=== PATIENT | male | born 1995 | race Caucasian/White ===

== ENCOUNTER → 2016-06-06 | Day surgery (SDC) | payer OTHER ==
[2016-06-06] VITALS (7 sets, daily range): BP systolic 115–128; BP diastolic 61–78
[~2016-06-06] VITALS: Ht 182.9 cm; Wt 96.6 kg
[~2016-06-06] MED LIST: LR 1000ml 1,000 ML IVLG SCH; LR 1000ml ONE; NKM; Propofol 10mg/ml 20ml IV ONE
--- NOTE | 2016-06-06 08:44 | Short Stay Surgery H&P ---
History of Present Illness History of Present Illness Chief Complaint GI bleeding, Abdominal pains and history of colon polyp. BEV Zambrano is a 21 year old male who was admitted on for Gerds, Ibs, colon polyps/GI bleed. Review of Systems Cardiovascular: Reports: no symptoms Respiratory: Reports: no symptoms Skeletal: Reports: no symptoms Gastrointestinal: Reports: gastro esophageal reflux disease Neurologic: Reports: no symptoms Endocrine: Reports: no symptoms Hematologic: Reports: no symptoms Physical Exam Skin: normal HENT: normal Heart: normal Lungs: normal Abdomen: abnormal Extremities: normal Genitourinary: normal Plan Plan of Care Upper and lower Gi endoscopy. Preop Interventions None. Summary of Findings See the reports Final Diagnosis: Attestation Are the patient's medical conditions optimized for surgery? Attestation Response: yes DIONNA KING Jun 06, 2016 08:44
--- NOTE | 2016-06-06 08:46 | Pre-Procedure Note/Attestation ---
Pre-Procedure Note/Attestation Complete Prior to Procedure Planned Procedure: left Procedure Narrative: The endoscopic exam of the upper and the lower GI tract. Indications for Procedure Pre-Operative Diagnosis: R/O Peptic Ulcer/ gastritis colon polyps/colitis Attestation I attest that I discussed the nature of the procedure; its benefits; risks and complications; and alternatives (and the risks and benefits of such alternatives ), prior to the procedure, with the patient (or the patient's legal account development representative). I attest that, if there was a reasonable possibility of needing a blood transfusion, the patient (or the patient's legal account development representative) was given the [place] [employer] [facility] [employer] [facility] standardized written summary, pursuant to the [place] Blood Safety Act ([place] Health and Safety Code # 1645, as amended). I attest that I re-evaluated the patient just prior to the surgery and that there has been no change in the patient's H&P, except as documented below: DIONNA KING Jun 06, 2016 08:46
--- NOTE | 2016-06-06 09:20 | Anethesia Preoperative Eval ---
Anesthesia Pre-op PMH/ROS General Date of Evaluation: Jun 06, 2016 Time of Evaluation: 09:07 Anesthesiologist: gris ASA Score: ASA 2 Mallampati Score Class I : Soft palate, uvula, fauces, pillars visible Class II: Soft palate, uvula, fauces visible Class III: Soft palate, base of uvula visible Class IV: Only hard plate visible Mallampati Classification: Class II Surgeon: sylvia Diagnosis: GERD, IBS Surgical Procedure: egd/colonoscopy Anesthesia History: none Allergies: Coded Allergies: No Known Allergies (Unverified , 06/06/16) Past Medical History Gastrointestinal/Genitourinary: Reports: GERD Anesthesia Pre-op Phys. Exam Physician Exam Last Vital Signs Date Time Temp Pulse Resp B/P Pulse Ox O2 Delivery O2 Flow Rate FiO2 06/06/16 08:48 97.7 80 18 128/78 100 Room Air Airway Exam Mallampati Score: Class II Teeth: intact Anesthesia Pre-op A/P Risk Assessment & Plan Plan: propofol Status Change Before Surgery: Denton Knutson MD Jun 06, 2016 09:20
--- NOTE | 2016-06-06 09:21 | Immediate Post-Op Evaluation ---
Immediate Post-Op Evalulation Immediate Post-Op Evalulation Date of Evaluation: Jun 06, 2016 Time of Evaluation: 09:45 IV Fluids: 500 Blood Pressure Systolic: 115 Blood Pressure Diastolic: 67 Pulse Rate: 78 Respiratory Rate: 17 O2 Sat by Pulse Oximetry: 100 Temperature (Fahrenheit): 98.5 Pain Score (1-10): 0 Nausea: No Vomiting: No Complications none Patient Status: awake, patent, none Hydration Status: adequate Denton Heart MD Jun 06, 2016 09:21
--- NOTE | 2016-06-06 09:22 | 48 Hour Post Anesthesia Eval ---
Post Anesthesia Evaluation Date of Evaluation: Jun 06, 2016 Time of Evaluation: 10:10 Blood Pressure Systolic: 120 0: 62 Pulse Rate: 65 Respiratory Rate: 21 Temperature (Fahrenheit): 98 O2 Sat by Pulse Oximetry: 100 Airway: patent Nausea: No Vomiting: No Pain Intensity: 0 Hydration Status: adequate Cardiopulmonary Status: stable Mental Status/LOC: patient returned to baseline Follow-up Care/Observations: n/a Post-Anesthesia Complications: toleratd well Follow-up care needed: ready to discharge Denton Heart MD Jun 06, 2016 09:22
--- NOTE | 2016-06-06 09:31 | Endoscopy Procedure Note ---
Endoscopy Procedure Note Procedures Performed: EGD - Completely normal upper GI endoscopy, biopsy done per random from gastric body, colonoscopy - Poor colon prep with high redundancy of the left colon. Small 2mm hyperplastc polyp found in rectum removed by cold biopsy forceps. Specimen: yes Pt Tolerated Procedure Well: Yes Estimated Blood Loss: none Anesthesiologist: Dr. Heart Anesthesia: moderate sedation Medication Given: see anesthesia record Implant(s) used?: No 50 yrs or older w/o bx or poly: No 10yrs. F/U not recommended: Yes If not recommended, why?: 10 yrs. F/U needed: Yes <3yrs. since last colonoscopy: No Med reason:<3 yrs.: System Reason:<3 yrs.: DIONNA KING Jun 06, 2016 09:31
--- NOTE | 2016-06-06 09:32 | Discharge Instructions ---
Discharge Instructions Discharge Instructions Follow up with: See the the doctor after 2 weeks in office. For Congestive Heart Failure Reminder Report to your physician any weight gain of 5 pounds or more in one week. DIONNA KING Jun 06, 2016 09:32
--- NOTE | 2016-06-06 11:08 | Operative Note - Dictated ---
DATE OF OPERATION: 06/06/2016 PREOPERATIVE DIAGNOSES: 1. History of gastroesophageal reflux. 2. Abdominal pain. 3. History of gastrointestinal bleeding. POSTOPERATIVE DIAGNOSIS: Completely normal upper gastrointestinal endoscopy. Biopsy was taken per random from gastric body. PROCEDURE PERFORMED: Esophagogastroduodenoscopy with biopsy. SURGEON: Caro Petty M.D. ANESTHESIOLOGIST: Dr. Heart. MEDICATIONS USED: Per Dr. Heart, anesthesiologist. INSTRUMENT: GIF Olympus upper GI video endoscope. DESCRIPTION OF PROCEDURE: The patient after arriving at endoscopy unit, was told about risks and benefits of the procedure, which he accepted and signed the informed consent. At this time, he was put in the left lateral decubitus position. After adequate IV sedation, the scope was gently passed through the cricopharyngeal area, was lodged into the upper esophagus and gradually advanced towards gastroesophageal junction. The entire length of the esophagus was normal so was the gastroesophageal junction. No Lal's or hiatal hernia. The scope was then guided into the stomach. Gastric cavity was distended with insufflation of air and gradually the areas of the fundus, the body, and the antrum were examined which revealed no abnormality. There was no evidence of ulcers, tumors, inflammatory process, etc. A retroflexion maneuver was also applied in the fundus which revealed no abnormality either. At this point, the scope was gradually passed through the normal-looking pylorus. First and second portion of duodenum were found to be completely normal. At this time, one random biopsy from gastric body obtained and subsequently procedure was terminated. The patient tolerated the procedure well and left the endoscopy room in good condition. Caro Petty M.D. DR: Kiana JOB#: [id number] CC:
--- NOTE | 2016-06-06 11:48 | Operative Note - Dictated ---
DATE OF OPERATION: 06/06/2016 PREOPERATIVE DIAGNOSES: 1. Abdominal pain. 2. History of gastrointestinal bleeding. 3. History of colon polyp. POSTOPERATIVE DIAGNOSES: 1. Poor colon prep. 2. Highly redundant left colon with evidence of a small 2-mm hyperplastic polyp in the rectum which was removed with cold biopsy forceps. 3. Otherwise, normal study up to the base of the cecum as examined. PROCEDURE PERFORMED: Total colonoscopy with polypectomy. SURGEON: Caro Petty M.D. ANESTHESIOLOGIST: Dr. Heart. MEDICATIONS USED: Per Dr. Heart, anesthesiologist. INSTRUMENT: GIF Olympus videocolonoscope. DESCRIPTION OF PROCEDURE: The patient after arriving at the endoscopy unit, was told about risks and benefits of the procedure, which he accepted and signed the consent. At this time, he was put in the left lateral decubitus position. After adequate IV sedation, the scope was gently passed through the anal area and careful examination of this section possibly performing a retroflexion maneuver was applied, which did not reveal any major hemorrhoids or tumors; however, there was an incidental finding of presence of 2 mm hyperplastic very soft polypoid lesion in the rectum which was removed with cold biopsy forceps. The site of the biopsy did not reveal any evidence of bleeding. At this point, the scope was passed through highly redundant left colon, which was filled with fluid signifying lack of adequate preparation, poor colonic prep; however, multiple irrigation had to be given. With maneuvers, the scope was gradually passed through this area and introduced in the left descending colon. These areas remained to be completely normal as the scope reached toward the splenic flexure. From there, it was guided into the transverse colon and finally right colon all the way to the base of the cecum. As I mentioned, there was liquidy fluid along the colon which had to be suctioned; however, there was no any gross pathology such as tumors, other polyps, strictures, ulceration, etc., found up to the base of the cecum as examined. At this point, within 7 minutes, the scope was gradually pulled out and re-evaluation of the colon did not reveal any other pathology. The patient tolerated the procedure well and left the endoscopy room in good condition. Said Sherine Petty DR: Kiana JOB#: [id number] CC:
== END | disposition home or self-care (01) ==
LOC: GAS 08:21
DX: K29.50 Unspecified chronic gastritis without bleeding (principal); K21.9 Gastro-esophageal reflux disease without esophagitis; Z86.010 Personal history of colon polyps; K62.1 Rectal polyp; Q43.8 Other specified congenital malformations of intestine
CPT/HCPCS: 43239; 45380; J2704; J7120; 94003; 94150